=== PATIENT | female | born 2000 | race Caucasian/White ===

== ENCOUNTER → 2021-01-18 | Outpatient (CLI) | payer BC ==
[2021-01-18 07:56] LABS: BASO # 0.04 (0.02-0.10); EOS # 0.37 (0.04-0.40); EOS % 8.7 % (1.0-5.0); HEMATOCRIT 39.5 % (37.0-47.0); LYMPH# 1.24 (1.50-4.00); MEAN CELL VOLUME 98 fl (78-100); MEAN CORPUSCULAR HEMOGLOBIN 32 pg (27-31); MEAN CORPUSCULAR HGB CONC 33 g/dL (33-37); MEAN PLATELET VOLUME 9.2 fl (7.4-10.4); MONO # 0.34 (0.20-0.80); NEU # 2.27 (1.40-6.50); PLATELET COUNT 230 K/mm3 (130-400); RED BLOOD COUNT 4.04 M/mm3 (4.10-5.30); RED CELL DISTRIBUTION WIDTH 11.6 % (11.5-14.5); WHITE BLOOD COUNT 4.3 K/mm3 (4.8-10.8)
[2021-01-18 08:13] LABS: POTASSIUM 4.6 mmol/L (3.5-5.1)
[2021-01-18 08:14] LABS: ALBUMIN 4.3 g/dL (3.5-5.0)
[2021-01-18 08:15] LABS: CALCIUM 9.7 mg/dL (8.3-10.5)
[2021-01-18 08:16] LABS: TOTAL PROTEIN 7.5 g/dL (6.4-8.3)
[2021-01-18 08:18] LABS: TOTAL BILIRUBIN 0.2 mg/dL (0.2-1.2)
== END ==
LOC: LAB 07:43
PROVIDERS: Physician Assistant
DX: Z13.29 Encounter for screening for other suspected endocrine disorder (principal); K90.9 Intestinal malabsorption, unspecified; Z83.438 Family history of other disorder of lipoprotein metabolism and other lipidemia

== ENCOUNTER → 2023-02-20 | Outpatient (CLI) | payer BC ==
[2023-02-20 09:30] LABS: URINE WBC 0 /hpf (0-3)
[2023-02-20 09:31] LABS: BASO # 0.04 K/mm3 (0.02-0.10); EOS # 0.09 K/mm3 (0.04-0.40); EOS % 2.3 % (1.0-5.0); HEMATOCRIT 36.8 % (37.0-47.0); HEMOGLOBIN 12.3 g/dL (12.5-16.0); LYMPH# 1.04 K/mm3 (1.50-4.00); MEAN CELL VOLUME 96 fl (78-100); MEAN CORPUSCULAR HEMOGLOBIN 32 pg (27-31); MEAN CORPUSCULAR HGB CONC 33 g/dL (33-37); MEAN PLATELET VOLUME 9.2 fl (7.4-10.4); MONO # 0.28 K/mm3 (0.20-0.80); NEU # 2.55 K/mm3 (1.40-6.50); PLATELET COUNT 229 K/mm3 (130-400); RED BLOOD COUNT 3.82 M/mm3 (4.10-5.30); RED CELL DISTRIBUTION WIDTH 11.9 % (11.5-14.5)
[2023-02-20 09:38] LABS: ALBUMIN 4.4 g/dL (3.5-5.0)
[2023-02-20 09:40] LABS: CALCIUM 9.4 mg/dL (8.3-10.5)
[2023-02-20 09:41] LABS: TOTAL PROTEIN 7.8 g/dL (6.4-8.3)
[2023-02-20 09:43] LABS: TOTAL BILIRUBIN 0.4 mg/dL (0.2-1.2); URINE APPEARANCE CLEAR; URINE BILIRUBIN NEGATIVE (NEGATIVE); URINE BLOOD 50 ery/uL (NEGATIVE); URINE COLOR YELLOW; URINE GLUCOSE NEGATIVE (NEGATIVE); URINE KETONE NEGATIVE (NEGATIVE); URINE LEUKOCYTE ESTERASE NEGATIVE (NEGATIVE); URINE MUCUS PRESENT (NOT PRESENT); URINE NITRATE NEGATIVE (NEGATIVE); URINE PROTEIN(semi-quant) NEGATIVE (NEGATIVE); URINE UROBILINOGEN NORMAL (NORMAL)
[2023-02-20 11:11] LABS: ERYTHROCYTE SEDIMENTATION RATE 8 mm/hr (0-20)
== END ==
LOC: LAB 09:19
PROVIDERS: Physician Assistant
DX: M25.50 Pain in unspecified joint (principal); R21 Rash and other nonspecific skin eruption

== ENCOUNTER → 2023-04-08 | Outpatient (CLI) | payer BC | LOC: RAD 14:15 | DX: R21 Rash and other nonspecific skin eruption (principal); R31.9 Hematuria, unspecified; R04.0 Epistaxis; J45.909 Unspecified asthma, uncomplicated; R53.83 Other fatigue; R14.0 Abdominal distension (gaseous); I73.00 Raynaud's syndrome without gangrene; M24.9 Joint derangement, unspecified; R76.8 Other specified abnormal immunological findings in serum ==

== ENCOUNTER → 2024-03-18 | Outpatient (CLI) | payer BC ==
[2024-03-18 09:47] LABS: BASO # 0.04 K/mm3 (0.02-0.10); EOS # 0.21 K/mm3 (0.04-0.40); EOS % 6.7 % (1.0-5.0); HEMATOCRIT 37.6 % (37.0-47.0); HEMOGLOBIN 12.5 g/dL (12.5-16.0); LYMPH# 1.04 K/mm3 (1.50-4.00); MEAN CELL VOLUME 97 fl (78-100); MEAN CORPUSCULAR HEMOGLOBIN 32 pg (27-31); MEAN CORPUSCULAR HGB CONC 33 g/dL (33-37); MONO # 0.23 K/mm3 (0.20-0.80); PLATELET COUNT 207 K/mm3 (130-400); RED BLOOD COUNT 3.87 M/mm3 (4.10-5.30); RED CELL DISTRIBUTION WIDTH 11.6 % (11.5-14.5); WHITE BLOOD COUNT 3.1 K/mm3 (4.8-10.8)
[2024-03-18 09:56] LABS: ALBUMIN 4.5 g/dL (3.5-5.0)
[2024-03-18 09:57] LABS: SODIUM 140 mmol/L (136-145)
[2024-03-18 09:58] LABS: CALCIUM 9.7 mg/dL (8.3-10.5)
[2024-03-18 09:59] LABS: GLUCOSE 100 mg/dL (65-105); TOTAL PROTEIN 7.4 g/dL (6.4-8.3)
[2024-03-18 10:00] LABS: CARBON DIOXIDE 25 mmol/L (22-29)
[2024-03-18 10:01] LABS: TOTAL BILIRUBIN 0.4 mg/dL (0.2-1.2)
[2024-03-18 10:04] LABS: AST-SGOT 32 U/L (5-34)
[2024-03-18 10:06] LABS: ALT/SGPT 45 U/L (0-55)
== END ==
LOC: LAB 09:31
DX: I73.00 Raynaud's syndrome without gangrene (principal); R76.8 Other specified abnormal immunological findings in serum